=== PATIENT | male | born 1995 | race Caucasian/White ===

== ENCOUNTER 2022-02-03 22:01 | Emergency (ER) | payer OTHER, SELFPAY ==
[2022-02-03] MEDS: LORazepam INJ (*CRX) 2 MG/ML VIAL IM (22:33)
[2022-02-03] MEDS: diphenhydrAMINE HCl INJ 50 MG/ML VIAL IM (22:33)
[2022-02-03] MEDS: HALOPERIDOL LACTATE 5 MG/ML VIAL IM (22:34)
[2022-02-03 22:38] VITALS: BP 148/98; PULSE 144; RESP 22; TEMP 36.8; O2SAT 100
--- NOTE | 2022-02-03 22:40 | PC.NURSE ---
Pt yelling at RN the he is going to kill her. Pt yelling in room at security.
[2022-02-03 23:51] LABS: Basophils Absolute Auto 0.1 K/mm3 (0.0-0.1); Basophils Percent Auto 0.4 % (0.2-1.2); Eosinophils Percent Auto 0.1 % (0-4.4); Hematocrit 47.4 % (42.0-52.0); Hemoglobin 16.2 g/dL (14.0-18.0); Immature Granulocyte Absolute 0.05 K/mm3 (0.00-0.031); Immature Granulocyte Percent A 0.4 % (0-0.5); Lymphocytes Absolute Auto 1.04 K/mm3 (0.9-3.2); Lymphocytes Percent Auto 7.3 % (18.3-44.2); Mean Corpuscular HGB Conc 34.2 g/dl (32-36); Mean Corpuscular Hemoglobin 32.3 pg (26-34); Mean Corpuscular Volume 94.6 fl (80-100); Mean Platelet Volume 8.4 fl (7.4-10.4); Monocytes Absolute Auto 1.1 K/mm3 (0.1-0.6); Monocytes Percent Auto 7.6 % (2.6-8.5); Neutrophils Absolute Auto 12.1 K/mm3 (1.3-6.7); Neutrophils Percent Auto 84.2 % (45.5-73.1); Platelet Count Result 297 k/mm3 (150-375); Red Blood Count 5.01 M/mm3 (4.6-6.20); Red Cell Distribution Width 12.5 % (11.5-14.5); White Blood Count 14.3 K/mm3 (4.5-10.0)
--- NOTE | 2022-02-03 23:52 | PC.NURSE ---
PT has been changed into scrubs belongings in locked cabinet in ed.
[2022-02-04 00:01] LABS: Ethanol < 10 mg/dL (<10)
[2022-02-04 00:02] LABS: Alanine Aminotransferase 21 U/L (6-50); Albumin Level 5.1 g/dL (3.5-5.1); Alkaline Phosphatase 51 U/L (38-126); Anion Gap 12 mmol/L (8-16); Aspartate Amino Transferase 27 U/L (17-59); Bilirubin,Total 1.3 mg/dL (0.2-1.3); Blood Urea Nitrogen 20 mg/dL (9-20); Calcium 9.6 mg/dL (8.4-10.2); Carbon Dioxide 24 mmol/L (22-30); Chloride 105 mmol/L (98-107); Estimated CRCL calculation 112 ml/min; Estimated Glomerular Filt Rate > 60; Glucose 132 mg/dL (65-110); Potassium 3.5 mmol/L (3.4-5.0); Sodium 141 mmol/L (137-145)
[2022-02-04 00:17] VITALS: BP 127/69; PULSE 97; RESP 20; O2SAT 100
[2022-02-04 00:27] LABS: SARS-CoV-2 RNA PCR Negative
[2022-02-04 00:32] LABS: Thyroid Stimulating Hormone 0.502 uIU/mL (0.465-4.680)
--- NOTE | 2022-02-04 01:15 | PC.NURSE ---
Attempted to straight cath pt unsuccessful. Pt request to drink more water and he will try to void for us.
--- NOTE | 2022-02-04 02:15 | PC.NURSE ---
Pt awake easily tries to urinate in urinal with no success. Pt is calm and cooperative has walked to bathroom to try.
[2022-02-04 03:10] VITALS: BP 106/56; PULSE 92; RESP 16; O2SAT 96
--- NOTE | 2022-02-04 04:34 | PC.NURSE ---
RN bladder scanned pt 353ml in bladder.
--- NOTE | 2022-02-04 04:50 | ED.PSYCH ---
HPI - Psych General Chief Complaint: Psychiatric Symptoms Stated Complaint: MANIC Time Seen by Provider: 02/03/22 22:02 History of Present Illness HPI Narrative: Patient is a 27-year-old male brought in by [facility] due to patient being in the streets shouting and acting erratically. Patient is awake and alert. He was initially following commands for EMS but is agitated and not wanting to cooperate at this time. He is speaking rapidly but is not making any sense. Patient cannot ask orientation questions. He is too agitated to allow for blood draw. Multiple attempts made by multiple people to attempt to get him to calm down and feel comfortable going. Ultimately patient required Ativan 2 mg, Haldol 5 mg, and Benadryl 50 mg for his agitation. He did eventually lay on his side on his own and did not require being held down. Related Data Allergies Allergy/AdvReac Type Severity Reaction Status Date / Time No Known Allergies Allergy Verified 02/03/22 22:55 Review of Systems Review of Systems: ROS unobtainable: Yes unobtainable due to medical condition PMFSH Past Medical History Medical History (Updated 02/04/22 @ 06:50 by Xiang Pérez MD) Medical history unknown Surgical History Surgical History (Updated 02/04/22 @ 04:53 by Xiang Pérez MD) Surgical history unknown Social History Social History Substance use type: unknown Exam Narrative: GENERAL: Anxious-appearing, well-nourished, and in mild distress. HEAD: Normocephalic, atraumatic. EYES: PERRL and EOMI. ENT: Mucous membranes moist. CHEST: Clear to auscultation. No respiratory distress. HEART: Tachycardic and regular. Normal peripheral pulses. ABDOMEN: Soft, nontender, nondistended. EXTREMITIES: Normal range of motion. No edema. SKIN: Warm, dry, no rash. NEURO: Awake and alert, not oriented. No facial droop with clear speech. PSYCH: Pressured speech with general agitation. Patient speaking constantly but thought content is erratic and does not stay on a singular topic. Has paranoia about [employer]. Course Reevaluation(s) Reevaluation #1: Patient resting comfortably. He has been eating and drinking. He has been unable to provide urine despite trying. Bladder scan shows 3 and 25 mL of urine. Patient is awake alert but he is not oriented. He still has erratic nonsensical speaking. He recognizes he needs to get urine but thinks he needs 3 more cups of water. He thinks it is 1994. Date: 02/04/22 Time: 04:55 Reevaluation #2: Patient coming down but still acting erratically and not oriented Will observe until sober. Date: 02/04/22 Time: 06:47 Vital Signs Vital signs: Vital Signs Temperature 36.8 C 02/03/22 22:38 Pulse Rate 144 H 02/03/22 22:38 Respiratory Rate 22 H 02/03/22 22:38 Blood Pressure 148/98 H 02/03/22 22:38 Pulse Oximetry 100 02/03/22 22:38 Oxygen Delivery Room Air 02/03/22 22:38 Temperature 36.8 C 02/03/22 22:38 Pulse Rate 92 02/04/22 03:10 Respiratory Rate 16 02/04/22 03:10 Blood Pressure 106/56 L 02/04/22 03:10 Pulse Oximetry 96 02/04/22 03:10 Oxygen Delivery Room Air 02/03/22 22:38 MDM - Psych Lab Data Result diagrams: 02/03/22 23:43 02/03/22 23:43 Labs: Lab Results 02/03/22 02/03/22 02/03/22 Range/Units 23:43 23:43 23:43 WBC 14.3 H (4.5-10.0) K/mm3 RBC 5.01 (4.6-6.20) M/mm3 Hgb 16.2 (14.0-18.0) g/dL Hct 47.4 (42.0-52.0) % MCV 94.6 (80-100) fl MCH 32.3 (26-34) pg MCHC 34.2 (32-36) g/dl RDW 12.5 (11.5-14.5) % Plt Count 297 (150-375) k/mm3 MPV 8.4 (7.4-10.4) fl Immature Gran % (Auto) 0.4 (0-0.5) % Neut % (Auto) 84.2 H (45.5-73.1) % Lymph % (Auto) 7.3 L (18.3-44.2) % Stevens % (Auto) 7.6 (2.6-8.5) % Eos % (Auto) 0.1 (0-4.4) % Baso % (Auto) 0.4 (0.2-1.2) % Lymph # (Auto) 1.04 (0.9-3.2) K/mm3 Stevens # (Auto) 1.1 H (0.1-0.6) K/mm3 Eos # (Aut
[2022-02-04 05:29] LABS: Appearance Urine Slightly Cloudy (Clear); Bilirubin Urine 1+ (Negative); Blood Urine Negative (Negative); Color Urine Amber (Yellow); Glucose Urine UA Negative (Negative); Ketones Urine Trace mg/dL (Negative); Leukocyte Esterase Ur Negative LEU/UL (Negative); Nitrate Urine Negative (Negative); Protein Urine 1+ mg/dL (Negative); Specific Grav Ur >= 1.030 (1.001-1.035); Urobilinogen Urine 0.2 mg/dL (<2.0); pH Urine 5.5 (5.0-9.0)
[2022-02-04] MEDS: SODIUM CHLORIDE 0.9% IV 1,000 ML 999 ML IV CONT (05:31)
[2022-02-04 05:50] LABS: Bacteria Urine Trace /hpf; Mucus Urine Moderate /lpf; Squamous Epithelial Cell Urine Rare /hpf (Few)
[2022-02-04 05:57] LABS: Add Urine Microscopic? YES
[2022-02-04 06:17] LABS: Barbiturate Screen Urine Negative (Negative); Benzodiazepines Screen Urine Negative (Negative)
[2022-02-04 06:18] LABS: Cannabinoid Screen Urine Positive (Negative); Cocaine Screen Urine Negative (Negative); Methadone Screen Urine Negative (Negative); Opiate Screen Urine Negative (Negative); Phencyclidine Screen Urine Negative (Negative)
[2022-02-04 06:34] LABS: Amphetamine Screen Urine Positive (Negative)
--- NOTE | 2022-02-04 07:41 | PC.NURSE ---
Patient has attempted to call mom with no answer. PT is being discharged.
--- NOTE | 2022-02-04 07:53 | PC.NURSE ---
Called number provided by patient [phone] with no answer. Pt states this is his mothers number.
--- NOTE | 2022-02-04 08:08 | PC.NURSE ---
Pt denies SI and HI at discharge.
== END 2022-02-04 08:09 | disposition home or self-care (01) ==
PROVIDERS: Emergency Medicine; Emergency Provider Emergency Medicine
DX: F15.10 Other stimulant abuse, uncomplicated (principal); Z20.822 Contact with and (suspected) exposure to COVID-19
CPT/HCPCS: 36415; 80053; 80307; 81001; 84443; 85025; 96360; 96372; 99284; C9803; J1200; J1630; J2060; J7030; U0003; U0005